=== PATIENT | male | born 1995 | race Hispanic/Latino ===

== ENCOUNTER 2017-03-12 14:26 | Emergency (ER) | payer BC ==
[2017-03-12] MEDS ORDERED: Ibuprofen 800 MG TAB ONE (16:15)
--- NOTE | 2017-03-12 17:48 | RAD ---
LUMBAR SPINE THREE VIEW: History: Back pain. Comparison: None. FINDINGS: There appears to be osseous fusion of the L5 transverse processes with the sacrum. No acute fracture. No malalignment. IMPRESSION: Osseous fusion and bilateral enlarged L5 transverse processes with the sacrum, lumbosacral transition al vertebrae. POS: [facility]
--- NOTE | 2017-03-12 17:49 | RAD ---
THORACIC SPINE TWO VIEWS: History: Back pain. Comparison: None. FINDINGS: Mild S-shaped scoliosis. No acute fracture. No malalignment. IMPRESSION: No acute abnormality. POS: [facility]
== END 2017-03-12 16:34 | disposition home or self-care (01) ==
LOC: ERS 14:26
DX: S30.0XXA Contusion of lower back and pelvis, initial encounter (principal); J45.909 Unspecified asthma, uncomplicated; W10.9XXA Fall (on) (from) unspecified stairs and steps, initial encounter
CPT/HCPCS: 72070; 72100

== ENCOUNTER 2018-02-09 01:27 | Emergency (ER) | payer BC ==
--- NOTE | 2018-02-09 08:36 | RAD ---
2 VIEWS LEFT FOREARM: Date: 02/09/18 HISTORY: Injury. Pain. FINDINGS: There is a mildly displaced distal radial diaphyseal fracture. There is associated soft tissue swelli ng. IMPRESSION: Fracture. POS: [facility]
== END 2018-02-09 03:59 | disposition home or self-care (01) ==
LOC: ERS 01:27
DX: S52.302A Unspecified fracture of shaft of left radius, initial encounter for closed fracture (principal); J45.909 Unspecified asthma, uncomplicated; W18.30XA Fall on same level, unspecified, initial encounter
CPT/HCPCS: 29125

== ENCOUNTER 2018-02-16 06:35 | Day surgery (SDC) | payer BC ==
[2018-02-15 16:39] VITALS: BMI 21.2
[2018-02-16] MEDS ORDERED: Midazolam HCl 2 mg/2 ml Vial ONE (08:10)
[2018-02-16] MEDS ORDERED: Lidocaine 1% (PF) 30 ML VIAL ONE (08:10)
[2018-02-16] MEDS ORDERED: Fentanyl 100 MCG/2 ML VIAL ONE (08:10)
[2018-02-16] MEDS ORDERED: CEFAZOLIN 2 GM/50 ML BAG ONE (08:22)
[2018-02-16] MEDS ORDERED: Meperidine HCl/PF 25 MG/ML VIAL ONE (10:07)
--- NOTE | 2018-02-16 10:50 | OP ---
DATE OF PROCEDURE: 02/16/2018 PROCEDURE PERFORMED: Open reduction and internal fixation of left radius fracture. PREOPERATIVE DIAGNOSIS: Left radial shaft fracture with disruption of distal radioulnar joint. POSTOPERATIVE DIAGNOSIS: Left radial shaft fracture with disruption of distal radioulnar joint. COMPLICATIONS: None. ESTIMATED BLOOD LOSS: Minimal. ALTERATIONS MANAGER: Martha Balbuena PA-C. IMPLANTS: Synthes 3.5 mm LC-DC 7-hole plate. INDICATIONS: Mr. Pryor is a 22-year-old male who fell. He fractured his left radius. He was indicated for open reduction and internal fixation to restore anatomic alignment and to promote healing. Risks were reviewed in detail. He elected to proceed with the operation. DESCRIPTION OF PROCEDURE: Mr. Pryor was identified in the preoperative holding area. His correct extremity was marked. He was carried to the operating room. He was positioned supine. General anesthesia was induced. A multidisciplinary time-out was performed. The left upper extremity was prepped and draped in sterile fashion. We began the procedure with a volar approach to the radius. We dissected down through the subcutaneous tissues to the FCR tendon and the tendon sheath was opened. This allowed an interval to dissect down to the bony level. At this point, we exposed the underlying bone. We reduced the fracture after clearing the bony edges. We took x-ray images confirming reduction. At this point, we placed an interfragmentary screw. Next, we placed a 7-hole 3.5 plate. A total of 7 screws were placed locking the plate to the bone. We took final images. We then thoroughly irrigated and closed appropriately. We stressed the DRUJ, it was stable after radial plating and did not require fixation. Job ID: [id number]
--- NOTE | 2018-02-16 13:02 | RAD ---
INTRAOPERATIVE FLUOROSCOPY: History: Fracture. Internal fixation plate placement. Exposure: 9.4 sec; 0.14 mGy*cm^2 FINDINGS: Two fluoroscopic images demonstrate an internal fixation plate with screws traversing radial diaphyse al fracture. IMPRESSION: Fluoroscopy as above. POS: [facility]
[2018-02-16] MEDS ORDERED: Ondansetron PF 4 MG/2 ML Vial ONE (20:51)
[2018-02-16] MEDS ORDERED: Dexamethasone 20 MG/5 ML VIAL ONE (20:51)
[2018-02-16] MEDS ORDERED: Ketorolac Tromethamine 30 MG/ML VIAL ONE (20:51)
[2018-02-16] MEDS ORDERED: PROPOFOL 200 MG/20 ML VIAL ONE (20:51)
[2018-02-16] MEDS ORDERED: Bupivacaine HCl 0.5%/Epinephrine 1:200,000/PF 30 ml Vial ONE (22:01)
== END 2018-02-16 12:05 | disposition home or self-care (01) ==
LOC: SDC 06:35
PROVIDERS: ATTEND Orthopaedic Surgery
PROC: 0PSJ04Z Reposition Left Radius with Internal Fixation Device, Open Approach (ICD-10-PCS; principal; 2018-02-16)
DX: S52.302A Unspecified fracture of shaft of left radius, initial encounter for closed fracture (principal); Q78.0 Osteogenesis imperfecta; W19.XXXA Unspecified fall, initial encounter
CPT/HCPCS: 76001; C1713; J0670; J1100; J1885; J2001; J2175; J2250; J2405; J2704; J3010